=== PATIENT | male | born 2005 | race Hispanic/Latino ===

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

== ENCOUNTER 2025-02-15 21:23 | Emergency (ER) | payer SELFPAY ==
[~2025-02-15] VITALS: Ht 180.3 cm; Wt 142.4 kg
[~2025-02-15 21:23] MED LIST: CANA300T PO; GLIP-300 PO; METF-1151 PO
--- NOTE | 2025-02-15 21:43 | ERN ---
ED Note History of Present Illness Stated Complaint: ARM ABSCESS Chief Complaint: Abscess Time Seen by MD: 21:28 Time Seen by Midlevel: 21:28 Dictation: The patient is a 19-year-old male with a history of diabetes who presents to the emergency department with complaints of left anterior arm pain redness and pain onset Thursday. Patient denies any injuries or insect bites. Denies any fevers. Allergies: Coded Allergies: No Known Allergies (Unverified Allergy, Unknown, 06/06/19) Home Meds Active Scripts Canagliflozin (Invokana) 300 Mg Tablet, 1 TAB PO DAILY for 30 Days, #30 TAB 0 Refills Prov:AMOR LEGER MD 11/27/24 Glipizide (Glipizide ER) 5 Mg Tab.er.24, 1 TAB PO DAILY for 30 Days, #30 TAB 0 Refills Prov:AMOR LEGER MD 11/27/24 Metformin HCl (Metformin HCl ER) 1,000 Mg [id number], 1 TAB PO BID for diabetes for 30 Days, #60 TAB 0 Refills Prov:AMOR LEGER MD 11/27/24 Past Medical History Past Medical History: No Pertinent History, Diabetes-Type II Surgical History: None RN Note Reviewed/Agreed w/PFSH: Yes Review of System Dictation Constitutional: Negative for fever,chills, and weight loss Eyes: Negative for injury, pain,redness, and discharge ENT: Negative for injury,pain or swelling Cardiovascular: Negative for chest pain, palpitations, and edema Respiratory: Negative for shortness of breath, cough, and wheezing, Abdomen/GI: Negative for abdominal pain, nausea, vomiting, diarrhea, and constipation Back: Negative for injury and pain : Negative for injury, bleeding and discharge MS/Extremity: Negative for injury and deformity Skin: Negative for rash, and discoloration positive for redness to left arm Neuro: Negative for headache, weakness, numbness, tingling, and seizure Psych: Negative for suicide ideation, homicidal ideation, and hallucinations Initial Vital Sign VS Vital Signs Date Time Temp Pulse Resp B/P (MAP) Pulse Ox O2 Delivery O2 Flow Rate FiO2 02/15/25 21:27 98.2 94 18 163/98 98 Physical Exam Dictation Vital Signs reviewed General Appearance: Alert, oriented x 3, no acute distress, well developed, nourished. Head and Face: non-traumatic. Eyes: PERRL, pink conjunctivas, eyelid no trauma, anterior chamber with arcus senilis. Ears: Pinnas intact and no signs of trauma or erythema ear canals clear and no discharge TM no erythema Nose: No discharge, no bleeding. Oropharynx: Mouth normal, tongue pink. pharynx clear,no erythema, tonsils no exudates, no abscesses noted, mucous membrane moist Neck: Supple, non-tender, no thyromegaly, no masses, no JVD, no bruits Breast:Deferred Chest:No tenderness, no crepitus, no paradoxical movement, no retractions Lungs:Clear, well-ventilated, symmetric, no rales, no wheezing, no rhonchi, no stridor, good breath sounds bilaterally Heart: Regular rate, regular rhythm, no murmur, no gallops Vascular: no peripheral edema, Abdomen: Soft, positive bowel sounds, nondistended, no guarding, nontender, no rebound, no masses no hepatomegaly, no splenomegaly, no Morales's sign, no hernias. Rectal: Deferred Genital: Deferred Neurological: Normal speech, motor function intact, sensory function intact Musculoskeletal: Neck nontender, full range of motion, back nontender, full range of motion, Extremities: nontender, full range of motion Skin: Color pink, dry, no turgor, no rash, no lacerations, no abrasions, no contusions. Erythema noted to anterior upper arm, smiling duration, tenderness, no open wounds or drainage. Lymphatic: Deferred Results (Laboratory/Radiology) Laboratory/Radiology Laboratory Tests Test 02/15/25 21:50 White Blood Count 13.1 K/uL (4.8-10.8) H Red Blood Count 5.48 MIL/uL (4.50-6.20) Hemoglobin 15.6 g/dL (14.0-18.0) Hematocrit 47.6 % (42-54) Mean Corpuscular Volume 86.9 fL (80-100) Mean Corpuscular Hemoglobin 28.5 pg (27.0-33.0) Mean Corpuscular Hemoglobin Concent 32.8 g/dL (32.0-36.0) Red Cell Distribution Width 11.8 % (11.0-15.5) Platelet Count 288 K/uL (130-400) Mean Platelet Volume 9.8 fL (7.5-10.5) Immature Granulocyte % (Auto) 0.4 % (0-1) Neutrophils (%) (Auto) 72.9 % (40.0-77.0) Lymphocytes (%) (Auto) 19.4 % (21.0-51.0) L Monocytes (%) (Auto) 6.0 % (3.0-13.0) Eosinophils (%) (Auto) 1.1 % (0.0-8.0) Basophils (%) (Auto) 0.2 % (0.0-5.0) Neutrophils # (Auto) 9.5 K/uL (1.8-7.7) H Lymphocytes # (Auto) 2.5 K/uL (1.0-4.8) Monocytes # (Auto) 0.8 K/uL (0.1-1.0) Eosinophils # (Auto) 0.15 K/uL (0.00-0.70) Basophils # (Auto) 0.03 K/uL (0.00-0.20) Absolute Immature Granulocyte (auto 0.05 K/uL (0-1) Nucleated Red Blood Cells 0.0 % (0.0-0.19) Sodium Level 141 mmol/L (136-145) Potassium Level 4.2 mmol/L (3.5-5.1) Chloride Level 104 mmol/L (101-111) Carbon Dioxide Level 31 mmol/L (21-32) Blood Urea Nitrogen 18 mg/dL (7-18) Creatinine 0.9 mg/dL (0.5-1.3) Glomerular Filtration Rate Calc 125 mL/min (>90) Random Glucose 122 mg/dL (70-105) H Total Calcium 9.4 mg/dL (8.5-10.1) REASON: left side cellulitis ORDERING PHYSICIAN: RUFUS TEE PROCEDURE: SOFT UP EX - US SOFT TISSUE UPPER EXTREMITY EXAM: US left Upper Extremity Nonvascular Soft Tissue Ultrasound CLINICAL HISTORY: Left-sided cellulitis. TECHNIQUE: Real-time ultrasound scan of the left upper extremity with image documentation. COMPARISON: None provided. FINDINGS: SOFT TISSUES: No fluid collection to indicate a drainable abscess. A 1.3 x 1.1 x 0.7 cm inflamed lymph node at the medial aspect of the left elbow with surrounding fat stranding. IMPRESSION: Inflamed enlarged lymph node at the medial aspect of the left elbow. No abscess is evident. /[facility] Reviewed?: Yes ED Course ED Course Orders Procedure Category Date Status Time Cbc With Differential LAB 02/15/25 Complete 21:34 Basic Metabolic Panel LAB 02/15/25 Complete 21:34 Us Soft Tissue Upper US 02/15/25 Resulted Extremity 21:34 Clindamycin 150mg Cap PHA 02/15/25 Complete (Cleocin 150mg Cap 22:00 Current Medications Medications (Trade) Dose Ordered Sig/Bahman Route PRN Reason Start Time Stop Time Status Last Admin Dose Admin Clindamycin HCl (Cleocin 150mg Cap) 600 mg ONCE ONCE PO 02/15/25 22:00 02/15/25 22:01 DC 02/15/25 21:45 Vital Signs Date Time Temp Pulse Resp B/P (MAP) Pulse Ox O2 Delivery O2 Flow Rate FiO2 02/15/25 21:27 98.2 94 18 163/98 98 Medical Decision Making MDM The patient is a 19-year-old male with a history of diabetes who presents to the emergency department with complaints of left anterior arm pain redness and pain onset Thursday. Patient denies any injuries or insect bites. Denies any fevers. CBC showed mild leukocytosis, no anemia, chemistry showed no electrolyte imbalance, normal blood glucose level. Ultrasound revealed lymph node. On physical exam patient has erythema and warmth. We will be treating him for cellulitis. Patient instructed to follow up with PCP in 1-2 days. Patient in no acute distress, nontoxic appearance. Differential diagnosis: Abscess, cellulitis, uncontrolled diabetes Need for hospitalization: Patient does not meet criteria for hospitalization. There are no social concerns with this patient. DX & DISP Disposition: Discharge Departure Impression: Primary Impression: Cellulitis of left upper arm Condition: Stable Scripts Clindamycin HCl (Clindamycin HCl) 300 Mg Capsule 1 CAP PO QID for 10 Days, #40 CAP 0 Refills Prov: TEERUFUS [employer] 02/15/25 Additional Instructions: You have an infection of your skin. Please take your antibiotics as prescribed. Follow up with your primary doctor in 1-2 days. If anything worsens please return to ER. FOLLOW-UP WITH PRIMARY CARE PROVIDER IN 1 TO 2 DAYS. TAKE MEDICATIONS DIRECTED HERE IN THE EMERGENCY ROOM. OKAY TO CONTINUE HOME MEDICATIONS UNLESS OTHERWISE DISCUSSED DURING YOUR VISIT IN THE EMERGENCY ROOM TODAY. RETURN TO YOUR NEAREST EMERGENCY ROOM IF SYMPTOMS WORSEN OR IF THERE IS NO IMPROVEMENT. CALL 911 IF YOU NEED IMMEDIATE ASSISTANCE. TAKE TYLENOL [id number] NEEDED AND IF NO CONTRAINDICATIONS ARE PRESENT. INCREASE ORAL HYDRATION. A WOUND CULTURE OR URINE CULTURE WAS ORDERED HERE IN THE EMERGENCY ROOM DEPARTMENT PLEASE FOLLOW-UP WITH PRIMARY CARE PROVIDER AND ADVISE THEM TO GET REPEAT PORTS FROM OUR FACILITY. IF YOU HAD ANY MIKA WRAP/SPLINTS THAT WERE APPLIED HERE, PLEASE DO NOT REMOVE THEM UNTIL YOU SEE YOUR PRIMARY CARE OR SPECIALTY. Referrals: SELF,REFERRAL (PCP) Time of Disposition: 23:26 I have reviewed the case, and I agree with, Diagnosis and Plan RUFUS TEE Feb 15, 2025 21:43
[2025-02-15] MEDS: CLINDAMYCIN 150 MG CAP PO ONE (21:45)
[2025-02-15 22:04] LABS: IMMATURE GRANULOCYTE ABSOLUTE 0.05 K/uL (0-1); NUCLEATED RED BLOOD CELLS 0.0 % (0.0-0.19); PLATELET COUNT (AUTO) 288 K/uL (130-400); RED BLOOD CELL COUNT(AUTO) 5.48 MIL/uL (4.50-6.20); RED CELL DISTRIBUTION WIDTH 11.8 % (11.0-15.5); WHITE BLOOD COUNT (AUTO) 13.1 K/uL (4.8-10.8)
[2025-02-15 22:16] LABS: CREATININE 0.9 mg/dL (0.5-1.3); GLOMERULAR FILTR. RATE CALC 125.0 mL/min (>90); GLUCOSE,RANDOM 122.0 mg/dL (70-105); SODIUM SERUM 141.0 mmol/L (136-145); UREA NITROGEN, BLOOD 18.0 mg/dL (7-18)
--- NOTE | 2025-02-15 23:18 | HMCIMG ---
EXAM: US left Upper Extremity Nonvascular Soft Tissue Ultrasound CLINICAL HISTORY: Left-sided cellulitis. TECHNIQUE: Real-time ultrasound scan of the left upper extremity with image documentation. COMPARISON: None provided. FINDINGS: SOFT TISSUES: No fluid collection to indicate a drainable abscess. A 1.3 x 1.1 x 0.7 cm inflamed lymph node at the medial aspect of the left elbow with surrounding fat stranding. IMPRESSION: Inflamed enlarged lymph node at the medial aspect of the left elbow. No abscess is evident. /Shabana
[2025-02-15] MEDS ORDERED: CLIN-141 PO (23:27)
[2025-02-15 23:33] VITALS: BP 157/85; PULSE 92; RESP 18; TEMP 98.6; O2SAT 99
== END 2025-02-15 23:34 | disposition home or self-care (01) ==
LOC: EDH 21:23
DX: L03.114 Cellulitis of left upper limb (principal); Z79.84 Long term (current) use of oral hypoglycemic drugs
CPT/HCPCS: 36415; 76882; 80048; 85025; 99284